=== PATIENT | female | born 1955 | race Caucasian/White ===

== ENCOUNTER 2019-01-23 05:24 | Inpatient (IN) ==
[2019-01-23] MEDS ORDERED: *HR* Heparin 5,000 UNIT/ML VIAL IVP ONE (05:30)
[2019-01-23] MEDS ORDERED: Ondansetron 4 MG/2 ML VIAL IVP ONE (05:30)
[2019-01-23] MEDS ORDERED: Aspirin 81 MG TAB.CHEW PO ONE (05:30)
[2019-01-23] MEDS ORDERED: *HR* Ticagrelor 90 MG TABLET PO ONE (05:32)
[2019-01-23] MEDS ORDERED: Morphine Sulfate 2 MG/ML SYRINGE IVP ONE (05:33)
[2019-01-23] MEDS: Nitroglycerin 0.4 MG TAB.SUBL SL STA ×2 (05:38→05:45)
[2019-01-23] MEDS ORDERED: *HR* FentaNYL (PF) 100 MCG/2 ML VIAL ONE ×2 (05:51→06:11)
[2019-01-23] MEDS ORDERED: *HR* FentaNYL (PF) 100 MCG/2 ML VIAL IVP ONE (05:54)
[2019-01-23] MEDS ORDERED: 0.9 % Sodium Chloride 1,000 ML ONE ×2 (05:57→06:00)
[2019-01-23] MEDS ORDERED: *HR* Heparin 10,000 UNIT/10 ML VIAL ONE (05:58)
[2019-01-23] MEDS ORDERED: ISOVUE-370 200 ML INFUS..BTL ONE (05:58)
[2019-01-23] MEDS ORDERED: Heparin 1,000 UNITS/500 mL 500 ML ONE (05:58)
[2019-01-23] MEDS ORDERED: Nitroglycerin 1,000 MCG/10 ML VIAL IV ONE (05:58)
[2019-01-23] MEDS ORDERED: Verapamil 5 MG/2 ML VIAL ONE (06:05)
[2019-01-23] MEDS ORDERED: *HR* Midazolam HCl 2 MG/2 ML VIAL ONE (06:11)
[2019-01-23 06:14] LABS: Prothrombin Time 11.2 Seconds (9.4-12.1)
[2019-01-23 06:16] LABS: Basophils # 0.1 K/mcL (0.0-0.2); Basophils % 0.6 %; Eosinophils # 0.3 K/mcL (0.0-0.6); Eosinophils % 3.6 %; Hematocrit 38.5 % (35.3-44.9); Immature Granulocytes % 0.2 % (0-4); Lymphocytes # 3.8 K/mcL (0.6-4.6); Mean Corpuscular HGB Conc 33.8 g/dL (31.6-35.5); Mean Corpuscular Hemoglobin 31.5 pg (28.0-33.3); Mean Corpuscular Volume 93.2 fL (83.0-100.0); Mean Platelet Volume 11.1 fL (9.4-12.4); Monocytes # 0.7 K/mcL (0.0-1.3); Monocytes % 7.1 %; Neutrophils # 4.4 K/mcL (1.6-8.9); Platelet Count 347 K/mcL (140-400); Red Blood Count 4.13 M/mcL (3.82-4.97); Segmented Neutrophils % 47.5 %; White Blood Count 9.3 K/mcL (4.3-11.1)
[2019-01-23 06:17] LABS: Activated Partial Thrombo Time 25.6 Seconds (26.0-36.0)
[2019-01-23 06:30] LABS: Albumin 4.2 g/dL (3.5-5.7); Albumin/Globulin Ratio 1.7 (1.1-2.2); Bilirubin,Direct 0.1 mg/dL (0.0-0.2); Bilirubin,Indirect 0.3 mg/dL (0.0-1.2); Bilirubin,Total 0.4 mg/dL (0.3-1.0); Globulin 2.5 g/dL (2.4-3.5); Total Protein 6.7 g/dL (6.4-8.9)
[2019-01-23] MEDS ORDERED: Tirofiban 12.5 MG/250ML 12.5 MG/250 ML BAG ONE (06:34)
[2019-01-23 06:39] LABS: BUN/Creatinine Ratio 13 (6-26); Blood Urea Nitrogen 11 mg/dL (8-23); Calcium 10.3 mg/dL (8.6-10.3); Carbon Dioxide 24 mEq/L (23-29); Chloride 107 mEq/L (98-107); Glucose 121 mg/dL (70-105); Osmolality,Calculated 295 (280-300); Potassium 3.5 mEq/L (3.5-5.1); Sodium 142 mEq/L (136-145); eGFR For African Americans > 60 (> 60); eGFR For Non-African Americans > 60 (> 60)
[2019-01-23] MEDS ORDERED: Nitroglycerin 0.4 MG TAB.SUBL SL PRN (06:49)
[2019-01-23] MEDS ORDERED: Tirofiban 12.5 MG/250ML 12.5 MG/250 ML BAG IVC SCH (07:00)
[2019-01-23] MEDS ORDERED: Perflutren Lipid Microsphere 1.3 ML in 0.9 % Sodium Chloride 8.7 ML IVP ONE (07:58)
[2019-01-23] MEDS ORDERED: Amiodarone Premix 150 MG/100 ML BAG IVPB ONE (08:33)
[2019-01-23] MEDS ORDERED: Amiodarone Premix 360 MG/200 ML BAG IVC ONE (08:33)
[2019-01-23] MEDS: *HR* Ticagrelor 90 MG TABLET PO SCH ×2 (09:20→21:14)
[2019-01-23] MEDS: Aspirin 81 MG TAB.CHEW PO SCH (09:20)
[2019-01-23] MEDS: Ondansetron 4 MG/2 ML VIAL IVP PRN (12:08)
[2019-01-23] MEDS: Amiodarone Premix 360 MG/200 ML BAG IVC SCH (14:51)
[2019-01-23] MEDS: *HR* Heparin 5,000 UNIT/ML VIAL SQ SCH (18:09)
[2019-01-24] MEDS: Amiodarone Premix 360 MG/200 ML BAG IVC SCH (02:40)
[2019-01-24 04:51] LABS: Basophils % 0.4 %; Eosinophils # 0.1 K/mcL (0.0-0.6); Eosinophils % 1.1 %; Hematocrit 33.9 % (35.3-44.9); Immature Granulocytes % 0.4 % (0-4); Lymphocytes # 1.9 K/mcL (0.6-4.6); Lymphocytes % 24.7 %; Mean Corpuscular HGB Conc 33.3 g/dL (31.6-35.5); Mean Corpuscular Hemoglobin 31.4 pg (28.0-33.3); Mean Corpuscular Volume 94.2 fL (83.0-100.0); Mean Platelet Volume 10.7 fL (9.4-12.4); Monocytes # 0.6 K/mcL (0.0-1.3); Monocytes % 8.3 %; Neutrophils # 4.9 K/mcL (1.6-8.9); Platelet Count 275 K/mcL (140-400); Red Cell Distribution Width 13.4 % (11.5-14.5); Segmented Neutrophils % 65.1 %; White Blood Count 7.6 K/mcL (4.3-11.1)
[2019-01-24 04:56] LABS: Hemoglobin 11.3 g/dL (11.5-15.4)
[2019-01-24 05:15] LABS: BUN/Creatinine Ratio 13 (6-26); Blood Urea Nitrogen 9 mg/dL (8-23); Calcium 8.9 mg/dL (8.6-10.3); Carbon Dioxide 22 mEq/L (23-29); Chloride 110 mEq/L (98-107); Glucose 101 mg/dL (70-105); Osmolality,Calculated 285 (280-300); Potassium 3.7 mEq/L (3.5-5.1); Sodium 138 mEq/L (136-145); eGFR For African Americans > 60 (> 60); eGFR For Non-African Americans > 60 (> 60)
[2019-01-24] MEDS: *HR* Heparin 5,000 UNIT/ML VIAL SQ SCH ×2 (05:25→18:15)
[2019-01-24] MEDS: Aspirin 81 MG TAB.CHEW PO SCH (09:23)
[2019-01-24] MEDS: *HR* Ticagrelor 90 MG TABLET PO SCH ×2 (09:23→21:52)
[2019-01-24] MEDS: Ondansetron 4 MG/2 ML VIAL IVP PRN ×2 (09:25→18:20)
[2019-01-24] MEDS ORDERED: Metoprolol XL (24 HR) Succ 25 MG TAB.ER.24H PO SCH (14:39)
[2019-01-24] MEDS ORDERED: Nitroglycerin 0.4 MG TAB.SUBL SL PRN (16:11)
[2019-01-25 03:58] LABS: Basophils % 0.5 %; Eosinophils # 0.1 K/mcL (0.0-0.6); Hematocrit 32.4 % (35.3-44.9); Hemoglobin 10.7 g/dL (11.5-15.4); Immature Granulocytes % 0.3 % (0-4); Lymphocytes # 1.7 K/mcL (0.6-4.6); Lymphocytes % 21.6 %; Mean Corpuscular Hemoglobin 31.8 pg (28.0-33.3); Mean Corpuscular Volume 96.4 fL (83.0-100.0); Monocytes # 0.7 K/mcL (0.0-1.3); Monocytes % 8.5 %; Neutrophils # 5.4 K/mcL (1.6-8.9); Platelet Count 281 K/mcL (140-400); Red Blood Count 3.36 M/mcL (3.82-4.97); Red Cell Distribution Width 13.2 % (11.5-14.5); Segmented Neutrophils % 68.1 %; White Blood Count 7.9 K/mcL (4.3-11.1)
[2019-01-25 04:16] LABS: BUN/Creatinine Ratio 11 (6-26); Blood Urea Nitrogen 10 mg/dL (8-23); Carbon Dioxide 26 mEq/L (23-29); Chloride 106 mEq/L (98-107); Glucose 98 mg/dL (70-105); Osmolality,Calculated 289 (280-300); Potassium 3.7 mEq/L (3.5-5.1); Sodium 140 mEq/L (136-145); eGFR For African Americans > 60 (> 60); eGFR For Non-African Americans > 60 (> 60)
[2019-01-25] MEDS: *HR* Heparin 5,000 UNIT/ML VIAL SQ SCH (05:56)
[2019-01-25] MEDS: Ondansetron 4 MG/2 ML VIAL IVP PRN (08:44)
[2019-01-25] MEDS: *HR* Ticagrelor 90 MG TABLET PO SCH (08:51)
[2019-01-25] MEDS ORDERED: Metoprolol XL (24 HR) Succ 25 MG TAB.ER.24H PO SCH (09:00)
[2019-01-25] MEDS ORDERED: Aspirin 81 MG TAB.CHEW PO SCH (09:00)
[2019-01-25 11:57] VITALS: BP 99/64
[2019-01-25 12:46] LABS: Hematocrit 34.5 % (35.3-44.9); Hemoglobin 11.4 g/dL (11.5-15.4)
== END 2019-01-25 15:51 | disposition home or self-care (01) | DRG 247 ==
LOC: EMEROOARM 05:24 → ICNU 06:02 → 2NNU 01-24 18:54
PROVIDERS: ADMIT Emergency Medicine; ATTEND Emergency Medicine

== ENCOUNTER 2019-11-26 10:19 | Observation (INO) ==
[2019-11-26] MEDS ORDERED: Aspirin 325 MG TABLET PO ONE (10:29)
[2019-11-26 10:44] LABS: Basophils # 0.1 K/mcL (0.0-0.2); Basophils % 0.8 %; Eosinophils # 0.1 K/mcL (0.0-0.6); Eosinophils % 1.7 %; Hematocrit 43.2 % (35.3-44.9); Immature Granulocytes % 0.2 % (0-4); Lymphocytes # 1.9 K/mcL (0.6-4.6); Lymphocytes % 30.1 %; Mean Corpuscular HGB Conc 32.4 g/dL (31.6-35.5); Mean Corpuscular Hemoglobin 30.5 pg (28.0-33.3); Mean Corpuscular Volume 94.1 fL (83.0-100.0); Mean Platelet Volume 10.3 fL (9.4-12.4); Monocytes # 0.6 K/mcL (0.0-1.3); Monocytes % 8.9 %; Neutrophils # 3.7 K/mcL (1.6-8.9); Platelet Count 323 K/mcL (140-400); Red Blood Count 4.59 M/mcL (3.82-4.97); Segmented Neutrophils % 58.3 %; White Blood Count 6.4 K/mcL (4.3-11.1)
[2019-11-26 10:48] LABS: INR 1.1; Prothrombin Time 12.1 Seconds (9.4-12.1)
[2019-11-26 11:05] LABS: BUN/Creatinine Ratio 14 (6-26); Blood Urea Nitrogen 12 mg/dL (8-23); Calcium 9.8 mg/dL (8.6-10.3); Carbon Dioxide 25 mEq/L (23-29); Chloride 105 mEq/L (98-107); Glucose 114 mg/dL (70-105); Osmolality,Calculated 285 (280-300); Potassium 3.8 mEq/L (3.5-5.1); Sodium 137 mEq/L (136-145); Troponin I < 0.03 ng/mL (< 0.04); eGFR For African Americans > 60 (> 60); eGFR For Non-African Americans > 60 (> 60)
[2019-11-26] MEDS ORDERED: Famotidine 20 MG TABLET PO PRN (11:39)
[2019-11-26] MEDS ORDERED: Ondansetron ODT 4 MG TAB.RAPDIS PO PRN (11:39)
[2019-11-26] MEDS ORDERED: Nitroglycerin 0.4 MG TAB.SUBL SL PRN (11:39)
[2019-11-26] MEDS ORDERED: Perflutren Lipid Microsphere 1.3 ML in 0.9 % Sodium Chloride 8.7 ML IVP ONE (16:23)
[2019-11-26 17:36] LABS: Estimated Average Glucose 137 mg/dl
[2019-11-26] MEDS: *HR* Ticagrelor 90 MG TABLET PO SCH (20:12)
[2019-11-26] MEDS ORDERED: Metoprolol XL (24 HR) Succ 25 MG TAB.ER.24H PO SCH (21:00)
[2019-11-27] MEDS: *HR* Ticagrelor 90 MG TABLET PO SCH (08:29)
[2019-11-27] MEDS ORDERED: lisinopriL 5 MG TABLET PO SCH (09:00)
[2019-11-27] MEDS ORDERED: Aspirin 81 MG TAB.CHEW PO SCH (09:00)
[2019-11-27 10:53] VITALS: BP 114/72
== END 2019-11-27 12:37 | disposition home or self-care (01) ==
LOC: EMEROOARM 10:19 → 3BNU 10:19
PROVIDERS: ADMIT Internal Medicine; ATTEND Internal Medicine